=== PATIENT | female | born 1980 ===

== ENCOUNTER 2022-01-04 10:16 | Day surgery (SDC) | payer OTHER ==
[2022-01-04] MEDS ORDERED: ZITHROMAX500 MG PO (18:10)
[2022-01-04] MEDS ORDERED: PERCOCET 5-3251 EACH PO (18:10)
== END 2022-01-04 22:20 | disposition home or self-care (01) ==
LOC: CIR.AMB 10:16
PROVIDERS: ATTEND Obstetrics & Gynecology
DX: N84.0 Polyp of corpus uteri (principal); Z88.8 Allergy status to other drugs, medicaments and biological substances